=== PATIENT | female | born 2000 | race Two or more races ===

== ENCOUNTER 2023-07-01 03:36 | Emergency (ER) | payer MEDICAID ==
[~2023-07-01] VITALS: Ht 162.6 cm; Wt 69.9 kg
[2023-07-01 03:40] VITALS: BP 115/77; TEMP 98.2; O2SAT 98
== END 2023-07-01 04:00 | disposition home or self-care (01) ==
LOC: ER 03:40
DX: R07.89 Other chest pain (principal); V89.2XXA Person injured in unspecified motor-vehicle accident, traffic, initial encounter; Y93.89 Activity, other specified; Y92.89 Other specified places as the place of occurrence of the external cause; Y99.8 Other external cause status